=== PATIENT | male | born 1950 | race Caucasian/White ===

== ENCOUNTER 2017-07-11 23:54 | Emergency (ER) | payer OTHER ==
[~2017-07-11] VITALS: Ht 167.6 cm; Wt 105.7 kg
[~2017-07-11 23:54] MED LIST: CLINDAMYCIN HC300 MG PO; GUAIFENESIN AN118 ML PO; LEVOFLOXACIN500 M1 PO; SIMVASTATIN10 M1 PO
[2017-07-11 23:58] VITALS: Ht 167.6 cm; Wt 105.7 kg
[2017-07-12 04:11] LABS: BASOPHIL % 0.9 % (0-2); PLATELET COUNT 210 x10^3mcL (130-400); RED CELL DISTRIBUTION WIDTH 13.8 % (11.5-14.5)
[2017-07-12 04:26] LABS: CALCIUM 8.9 mg/dL (8.5-10.1); CARBON DIOXIDE 23.6 mmol/L (21-32); CHLORIDE SERUM 104 mmol/L (98-107); GFR1 > 60 mL/min; GLUCOSE SERUM 113 mg/dL (74-106); POTASSIUM SERUM 4.3 mmol/L (3.5-5.1); SODIUM SERUM 138 mmol/L (136-145)
[2017-07-12 04:31] LABS: ALBUMIN 4.1 g/dL (3.4-5.0); ALKALINE PHOSPHATASE 110 U/L (46-116); ALT/SGPT 47 U/L (16-63); AST/SGOT 28 U/L (15-37); BILIRUBIN TOTAL 0.62 mg/dL (0.20-1.00); TOTAL PROTEIN, SERUM 7.6 g/dL (6.4-8.2)
[2017-07-12 05:55] VITALS: BP 147/81
== END 2017-07-12 05:55 | disposition home or self-care (01) ==
LOC: ED 23:54
PROVIDERS: Emergency Medicine
DX: R05 Cough (principal)
CPT/HCPCS: 36415; 83880

== ENCOUNTER 2018-06-27 13:50 | Inpatient (IN) | payer OTHER ==
[~2018-06-27] VITALS: Ht 165.1 cm; Wt 104.8 kg
[2018-06-27 13:55] VITALS: Ht 165.1 cm; Wt 104.8 kg
[2018-06-27 14:26] LABS: BASOPHIL % 1.1 % (0-2); PLATELET COUNT 232 x10^3mcL (130-400); RED CELL DISTRIBUTION WIDTH 13.9 % (11.5-14.5)
[2018-06-27 14:38] LABS: ALBUMIN 3.9 g/dL (3.4-5.0); BILIRUBIN TOTAL 0.5 mg/dL (0.20-1.00); CARBON DIOXIDE 26.3 mmol/L (21-32); CREATININE SERUM 1.3 mg/dL (0.7-1.3); TOTAL PROTEIN, SERUM 7.6 g/dL (6.4-8.2)
[2018-06-27 14:48] LABS: CALCIUM 8.8 mg/dL (8.5-10.1); POTASSIUM SERUM 4.3 mmol/L (3.5-5.1)
[2018-06-27] MEDS ORDERED: ATORVASTATIN CA40 M1 PO (17:08)
[2018-06-27 19:17] LABS: AMYLASE 78 U/L (25-115); MAGNESIUM 2.1 mg/dL (1.8-2.4); PHOSPHOROUS 2.8 mg/dL (2.5-4.9)
[2018-06-27 19:19] LABS: CHOLESTEROL 267 mg/dL (<200); CHOLESTEROL/HDL RATIO 8.6; HDL CHOLESTEROL 31 mg/dL (40-60); TRIGLYCERIDES 475 mg/dL (<150)
[2018-06-27 20:24] VITALS: BP 161/70
[2018-06-27 22:22] VITALS: BP 154/79
[2018-06-28 04:11] LABS: microscopic required? NO
[2018-06-28 04:25] LABS: urine erythrocyte NEGATIVE (NEGATIVE)
[2018-06-28 06:01] VITALS: BP 160/82
[2018-06-28 06:31] LABS: BASOPHIL % 0.9 % (0-2); PLATELET COUNT 228 x10^3mcL (130-400)
[2018-06-28 06:56] LABS: CALCIUM 8.5 mg/dL (8.5-10.1); CARBON DIOXIDE 24.2 mmol/L (21-32); CHLORIDE SERUM 103 mmol/L (98-107); CREATININE SERUM 0.9 mg/dL (0.7-1.3); GFR1 > 60 mL/min; GLUCOSE SERUM 101 mg/dL (74-106); SODIUM SERUM 139 mmol/L (136-145)
[2018-06-28 09:35] VITALS: BP 96/54
[2018-06-28 16:42] VITALS: BP 137/79
[2018-06-28 19:27] VITALS: BP 137/79
[2018-06-28] MEDS ORDERED: CLOPIDOGREL75 M1 PO (20:03)
[2018-06-28] MEDS ORDERED: ZES5 PO (20:04)
[2018-06-28] MEDS ORDERED: LOV100I SC (20:04)
[2018-06-28] MEDS ORDERED: METOPROLOL TART25 M1 PO (20:04)
[2018-06-28] MEDS ORDERED: ATORVASTATIN CA40 M1 PO (20:04)
[2018-06-28] MEDS ORDERED: NIT0.4 SL (20:05)
[2018-06-28] MEDS ORDERED: ECO81 PO (20:05)
== END 2018-06-28 21:15 | disposition short-term general hospital (02) | DRG 282 ==
LOC: ED 13:50 → DU 17:40
PROVIDERS: Emergency Medicine; Family Medicine
DX: I21.4 Non-ST elevation (NSTEMI) myocardial infarction (principal); K21.9 Gastro-esophageal reflux disease without esophagitis; I16.0 Hypertensive urgency; E78.5 Hyperlipidemia, unspecified; R73.03 Prediabetes; E66.9 Obesity, unspecified; Z68.37 Body mass index [BMI] 37.0-37.9, adult; Z71.3 Dietary counseling and surveillance; Z88.6 Allergy status to analgesic agent; E78.00 Pure hypercholesterolemia, unspecified
CPT/HCPCS: 83880; 90658; C9113; J7030; Q0092

== ENCOUNTER 2018-07-28 19:00 | Emergency (ER) | payer OTHER ==
[~2018-07-28] VITALS: Ht 160 cm; Wt 102.5 kg
[~2018-07-28 19:00] MED LIST changes: +ATORVASTATIN CA40 M1 PO; +CLOPIDOGREL75 M1 PO; +ECO81 PO; +LOV100I SC; +METOPROLOL TART25 M1 PO; +NIT0.4 SL; +ZES5 PO
[2018-07-28 19:07] VITALS: Ht 160 cm; Wt 102.5 kg
[2018-07-28 22:49] VITALS: BP 125/71
== END 2018-07-28 22:56 | disposition home or self-care (01) ==
LOC: ED 19:00
DX: J40 Bronchitis, not specified as acute or chronic (principal); I10 Essential (primary) hypertension; E78.00 Pure hypercholesterolemia, unspecified; Z98.890 Other specified postprocedural states
CPT/HCPCS: 87804; J1885; Q0092

== ENCOUNTER 2018-12-04 12:58 | Emergency (ER) | payer OTHER ==
[~2018-12-04] VITALS: Ht 162.6 cm; Wt 103.0 kg
[2018-12-04 13:09] VITALS: Ht 162.6 cm; Wt 103.0 kg
[2018-12-04 13:39] LABS: microscopic required? YES; urine erythrocyte 1+ (NEGATIVE)
[2018-12-04 14:08] LABS: BASOPHIL % 0.2 % (0-2); PLATELET COUNT 182 x10^3mcL (130-400); RED CELL DISTRIBUTION WIDTH 13.1 % (11.5-14.5)
[2018-12-04 14:23] LABS: ALBUMIN 3.5 g/dL (3.4-5.0); ALKALINE PHOSPHATASE 94 U/L (46-116); ALT/SGPT 47 U/L (16-63); AST/SGOT 20 U/L (15-37); BILIRUBIN TOTAL 0.8 mg/dL (0.20-1.00); CALCIUM 7.9 mg/dL (8.5-10.1); CARBON DIOXIDE 28.2 mmol/L (21-32); CHLORIDE SERUM 105 mmol/L (98-107); GLUCOSE SERUM 110 mg/dL (74-106); POTASSIUM SERUM 3.6 mmol/L (3.5-5.1); SODIUM SERUM 141 mmol/L (136-145); TOTAL PROTEIN, SERUM 6.4 g/dL (6.4-8.2)
[2018-12-04 14:47] LABS: CREATININE SERUM 1.1 mg/dL (0.7-1.3); GFR1 > 60 mL/min
[2018-12-04 15:35] VITALS: BP 137/70
== END 2018-12-04 15:35 | disposition home or self-care (01) ==
LOC: ED 12:58
PROVIDERS: Emergency Medicine
DX: R19.7 Diarrhea, unspecified (principal); R10.9 Unspecified abdominal pain; R53.1 Weakness; R11.0 Nausea; I10 Essential (primary) hypertension; E78.00 Pure hypercholesterolemia, unspecified; Z98.890 Other specified postprocedural states; Z88.5 Allergy status to narcotic agent
CPT/HCPCS: J7030